=== PATIENT | male | born 1950 | race Caucasian/White ===

== ENCOUNTER 2020-03-07 21:27 | Inpatient (IN) | payer MEDICARE, BC ==
[~2020-03-07] VITALS: Ht 175.3 cm; Wt 77.8 kg
--- NOTE | 2020-03-07 21:45 | NUR ---
THIS IS A 69 YO M BIB EMS W/ C/O SI/SA. PT REPORTS THAT HE WAS HAVING TROUBLE WITH HIS AND JUST STARTED FEELING TONIGHT THAT TAKING HIS LIFE WOULD BE BEST. PT REPORTS DRINKING 1/5 ALCOHOL AND PLANNED ON SHOOTING HIMSELF IN THE MOUTH. EMS REPORTS HE WAS ON THE PHONE W/ HIS DAUGHTER WHO CALLED FOR AMBULANCE. PT DENIES ANY MH HX. PT STATES THIS IS THE FIRST TIME HE HAS EVER ATTEMPTED TO END HIS LIFE. PT IS COOPERATIVE AND PLEASANT. RESP EVEN AND UNLABORED. NADN. VS STABLE. PT CLOTHING REMOVED AND PLACED IN SAFETY LOCKER. PT IN GOWN. RESTING ON GURNEY. SITTER OUTSIDE OF ROOM. WILL CONTINUE TO MONITOR.
[2020-03-07 21:46] LABS: BASOPHILS # (AUTO) 0.05 x10^3/uL (0-0.1); BASOPHILS % (AUTO) 1 % (0-1); EOSINOPHILS # (AUTO) 0.06 x10^3/uL (0-0.4); EOSINOPHILS % (AUTO) 1 % (1-7); LYMPHOCYTES # (AUTO) 3.38 x10^3/uL (1-3.4); LYMPHOCYTES % (AUTO) 36 % (22-44); MD NO; MEAN CORPUSCULAR HEMOGLOBIN 31.1 pg (27.5-34.5); MEAN CORPUSCULAR HGB CONC 33.2 g/dL (33.2-36.2); MEAN CORPUSCULAR VOLUME 93.6 fL (81-97); MEAN PLATELET VOLUME 6.8 fL (7.4-10.4); MONOCYTES % (AUTO) 6 % (2-9); NEUTROPHILS # (AUTO) 5.44 x10^3/uL (1.8-6.8); NEUTROPHILS % (AUTO) 57 % (42-75); PLATELET COUNT 258 x10^3/uL (130-400); RED BLOOD COUNT 4.57 x10^6/uL (4.38-5.82); RED CELL DISTRIBUTION WIDTH 15.4 % (9.4-14.8)
[2020-03-07 21:56] LABS: ANION GAP 11 mmol/L (5-15); CALCIUM 8.6 mg/dL (8.5-10.1); CHLORIDE 108 mmol/L (98-107); CREATININE 3.16 mg/dL (0.7-1.3); SALICYLATE LEVEL 2.1 mg/dL (2.8-20.0)
[2020-03-07] MEDS ORDERED: RANI-460 PO (21:58)
[2020-03-07] MEDS ORDERED: NITR0.4T41 SL (21:58)
[2020-03-07] MEDS ORDERED: LATANOPROST (21:58)
[2020-03-07] MEDS ORDERED: ATOR20TA PO (21:58)
[2020-03-07] MEDS ORDERED: PANT20TA2 PO (21:58)
[2020-03-07] MEDS ORDERED: TAMS-11 PO (21:58)
[2020-03-07] MEDS ORDERED: CLOP75TA52 PO (21:58)
[2020-03-07] MEDS ORDERED: METO50TA82 PO (21:58)
[2020-03-07] MEDS ORDERED: ASPI-496 PO (21:58)
[2020-03-07] MEDS ORDERED: AMLO-150 PO (21:58)
[2020-03-07] MEDS ORDERED: TELM40TA PO (21:58)
--- NOTE | 2020-03-07 22:32 | NUR ---
PT PROVIDED URINAL FOR URINE SAMPLE. PT REPORTS HE CAN'T PROVIDE URINE AT THIS TIME.
--- NOTE | 2020-03-07 22:38 | NUR ---
FRANCESCA (PTS ) [phone]. SPOKE TO PATIENTS FRANCESCA WITH PATIENTS PERMISSION. REPORTS THAT HE HAS BEEN DRINKING HEAVILY FOR A FEW DAYS NOW. REPORTS PT HAS HX OF STAGE 4 CIRROHSIS OF LIVER. JOE MA WOULD LIKE TO BE GIVEN UPDATES.
[2020-03-07] MEDS ORDERED: SODIUM CHLORIDE 0.9% 1,000ML IVBOLUS ONE (23:00)
[2020-03-07 23:39] LABS: BILIRUBIN, DIRECT 0.3 mg/dL (0.1-0.2)
--- NOTE | 2020-03-07 23:40 | NUR ---
REPORT GIVEN TO ELSIE BOSWELL. PT IS READY FOR TRANSPORT.
[2020-03-07 23:41] LABS: BILIRUBIN,INDIRECT 0.4 mg/dL (0.0-2.0); BILIRUBIN,TOTAL 0.7 mg/dL (0.2-1.0); TOTAL PROTEIN 8.2 g/dL (6.4-8.2)
--- NOTE | 2020-03-07 23:50 | NUR ---
PT TRANSFERED UPSTAIRS. DR. PENALOZA PLACED PATIENT ON HOLD AT THIS TIME. WILL TUBE UP PAPERWORK.
[2020-03-08 00:03] VITALS: BP 126/78
[2020-03-08] MEDS ORDERED: POTASSIUM CHLORIDE 20 MEQ, MAGNESIUM SULFATE 2 GM, THIAMINE 200 MG, MVI ADULT 10 ML, FO... IV SCH (00:46)
[2020-03-08] MEDS: HEPARIN 5,000 UNITS/ML, 1ML SQ SCH ×3 (01:00→17:00)
[2020-03-08] MEDS ORDERED: ACETAMINOPHEN 325 MG TABLET PO PRN (01:00)
[2020-03-08] MEDS ORDERED: TRAZODONE 50MG TABLET PO PRN (01:00)
[2020-03-08] MEDS ORDERED: hydrALAzine 20 MG/ML, 1ML IVPush PRN (01:00)
[2020-03-08] MEDS ORDERED: ONDANSETRON 2MG/ML, 2ML IVPush PRN (01:00)
[2020-03-08] MEDS: TAMSULOSIN 0.4 MG CAP.ER.24H PO SCH ×2 (01:14→20:31)
[2020-03-08 05:17] LABS: CHLORIDE,URINE RANDOM 47 mmol/L; CULTURE INDICATED? YES; MICROSCOPIC INDICATED; POTASSIUM,URINE RANDOM 50 mmol/L; SODIUM,URINE RANDOM 40 mmol/L
[2020-03-08 05:31] LABS: AMPHETAMINE SCREEN, URINE Negative (Negative); BARBITURATE SCREEN, URINE Negative (Negative); BENZODIAZEPINE SCREEN, URINE Negative (Negative); CANNABINOID SCREEN, URINE Negative (Negative); COCAINE SCREEN, URINE Negative (Negative); METHADONE SCREEN, URINE Negative (Negative); OPIATE SCREEN, URINE Negative (Negative)
[2020-03-08 05:33] LABS: CHLORIDE 111 mmol/L (98-107)
[2020-03-08 05:38] LABS: ANION GAP 11 mmol/L (5-15); CALCIUM 8.1 mg/dL (8.5-10.1); CREATININE 2.47 mg/dL (0.7-1.3)
[2020-03-08] MEDS: PANTOPRAZOLE 20MG TABLET PO SCH (06:06)
[2020-03-08 07:06] VITALS: BP 119/73
[2020-03-08] MEDS: AMLODIPINE 5 MG TABLET PO SCH (08:59)
[2020-03-08] MEDS: ASPIRIN 81 MG TABLET EC PO SCH (08:59)
[2020-03-08] MEDS: FAMOTIDINE 10 MG TAB PO SCH (08:59)
[2020-03-08] MEDS: CLOPIDOGREL 75 MG TABLET PO SCH (08:59)
[2020-03-08] MEDS: METOPROLOL TARTRATE 25 MG TAB PO SCH (08:59)
[2020-03-08 13:38] VITALS: BP 129/63
[2020-03-08 19:53] VITALS: BP 145/79
[2020-03-08] MEDS: ATORVASTATIN 20 MG TABLET PO SCH (20:31)
[2020-03-09] MEDS: POTASSIUM CHLORIDE 20 MEQ, MAGNESIUM SULFATE 2 GM, THIAMINE 200 MG, MVI ADULT 10 ML, FO... IV SCH ×2 (00:32→09:26)
[2020-03-09] MEDS: HEPARIN 5,000 UNITS/ML, 1ML SQ SCH ×3 (00:33→17:00)
[2020-03-09 01:58] VITALS: BP 156/91
[2020-03-09 04:37] LABS: BASOPHILS # (AUTO) 0.01 x10^3/uL (0-0.1); BASOPHILS % (AUTO) 0 % (0-1); EOSINOPHILS % (AUTO) 2 % (1-7); LYMPHOCYTES % (AUTO) 27 % (22-44); MD NO; MEAN CORPUSCULAR HEMOGLOBIN 31.1 pg (27.5-34.5); MEAN CORPUSCULAR VOLUME 94.4 fL (81-97); MEAN PLATELET VOLUME 7.1 fL (7.4-10.4); MONOCYTES # (AUTO) 0.32 x10^3/uL (0.2-0.8); MONOCYTES % (AUTO) 6 % (2-9); NEUTROPHILS # (AUTO) 3.88 x10^3/uL (1.8-6.8); NEUTROPHILS % (AUTO) 66 % (42-75); PLATELET COUNT 159 x10^3/uL (130-400); RED BLOOD COUNT 3.98 x10^6/uL (4.38-5.82); RED CELL DISTRIBUTION WIDTH 15.1 % (9.4-14.8)
[2020-03-09 04:48] LABS: ANION GAP 5 mmol/L (5-15); CALCIUM 8.4 mg/dL (8.5-10.1); CHLORIDE 112 mmol/L (98-107); CREATININE 1.68 mg/dL (0.7-1.3)
[2020-03-09] MEDS: PANTOPRAZOLE 20MG TABLET PO SCH (05:51)
[2020-03-09 07:45] VITALS: BP 138/77
[2020-03-09] MEDS: CLOPIDOGREL 75 MG TABLET PO SCH (08:20)
[2020-03-09] MEDS: AMLODIPINE 5 MG TABLET PO SCH (08:20)
[2020-03-09] MEDS: ASPIRIN 81 MG TABLET EC PO SCH (08:20)
[2020-03-09] MEDS: FAMOTIDINE 10 MG TAB PO SCH (08:21)
[2020-03-09] MEDS: METOPROLOL TARTRATE 25 MG TAB PO SCH (08:21)
[2020-03-09 16:14] VITALS: BP 130/79
[2020-03-09] MEDS: ATORVASTATIN 20 MG TABLET PO SCH (20:16)
[2020-03-09] MEDS: TAMSULOSIN 0.4 MG CAP.ER.24H PO SCH (20:16)
[2020-03-09 20:21] VITALS: BP 128/82
[2020-03-10] MEDS: HEPARIN 5,000 UNITS/ML, 1ML SQ SCH ×3 (00:58→16:38)
[2020-03-10 02:02] VITALS: BP 136/86
[2020-03-10] MEDS: PANTOPRAZOLE 20MG TABLET PO SCH (05:46)
[2020-03-10 06:00] LABS: BASOPHILS # (AUTO) 0.02 x10^3/uL (0-0.1); BASOPHILS % (AUTO) 0 % (0-1); EOSINOPHILS # (AUTO) 0.22 x10^3/uL (0-0.4); EOSINOPHILS % (AUTO) 4 % (1-7); LYMPHOCYTES # (AUTO) 1.68 x10^3/uL (1-3.4); LYMPHOCYTES % (AUTO) 28 % (22-44); MD NO; MEAN CORPUSCULAR HEMOGLOBIN 31.5 pg (27.5-34.5); MEAN CORPUSCULAR HGB CONC 33.5 g/dL (33.2-36.2); MEAN CORPUSCULAR VOLUME 94.1 fL (81-97); MEAN PLATELET VOLUME 7.1 fL (7.4-10.4); MONOCYTES # (AUTO) 0.47 x10^3/uL (0.2-0.8); MONOCYTES % (AUTO) 8 % (2-9); NEUTROPHILS # (AUTO) 3.52 x10^3/uL (1.8-6.8); NEUTROPHILS % (AUTO) 60 % (42-75); PLATELET COUNT 142 x10^3/uL (130-400); RED BLOOD COUNT 3.98 x10^6/uL (4.38-5.82); RED CELL DISTRIBUTION WIDTH 15.1 % (9.4-14.8)
[2020-03-10 06:10] LABS: ANION GAP 4 mmol/L (5-15); CALCIUM 8.6 mg/dL (8.5-10.1); CHLORIDE 114 mmol/L (98-107)
[2020-03-10 07:32] VITALS: BP 153/83
[2020-03-10] MEDS: FAMOTIDINE 10 MG TAB PO SCH (08:05)
[2020-03-10] MEDS: METOPROLOL TARTRATE 25 MG TAB PO SCH (08:05)
[2020-03-10] MEDS: CLOPIDOGREL 75 MG TABLET PO SCH (08:05)
[2020-03-10] MEDS: ASPIRIN 81 MG TABLET EC PO SCH (08:05)
[2020-03-10] MEDS: AMLODIPINE 5 MG TABLET PO SCH (08:05)
[2020-03-10] MEDS: POTASSIUM CHLORIDE 20 MEQ, MAGNESIUM SULFATE 2 GM, THIAMINE 200 MG, MVI ADULT 10 ML, FO... IV SCH (08:21)
[2020-03-10 13:42] VITALS: BP 136/71
[2020-03-10 19:36] VITALS: BP 137/76
[2020-03-10] MEDS: ATORVASTATIN 20 MG TABLET PO SCH (19:58)
[2020-03-10] MEDS: TAMSULOSIN 0.4 MG CAP.ER.24H PO SCH (19:58)
[2020-03-11] MEDS: HEPARIN 5,000 UNITS/ML, 1ML SQ SCH ×3 (01:00→17:10)
[2020-03-11 02:22] VITALS: BP 131/70
[2020-03-11] MEDS: PANTOPRAZOLE 20MG TABLET PO SCH (05:52)
[2020-03-11 07:27] LABS: BASOPHILS # (AUTO) 0.02 x10^3/uL (0-0.1); BASOPHILS % (AUTO) 0 % (0-1); EOSINOPHILS # (AUTO) 0.27 x10^3/uL (0-0.4); EOSINOPHILS % (AUTO) 5 % (1-7); LYMPHOCYTES # (AUTO) 1.55 x10^3/uL (1-3.4); LYMPHOCYTES % (AUTO) 28 % (22-44); MD NO; MEAN CORPUSCULAR HEMOGLOBIN 31.3 pg (27.5-34.5); MEAN CORPUSCULAR VOLUME 94.7 fL (81-97); MEAN PLATELET VOLUME 6.8 fL (7.4-10.4); MONOCYTES # (AUTO) 0.43 x10^3/uL (0.2-0.8); MONOCYTES % (AUTO) 8 % (2-9); NEUTROPHILS # (AUTO) 3.33 x10^3/uL (1.8-6.8); NEUTROPHILS % (AUTO) 59 % (42-75); PLATELET COUNT 128 x10^3/uL (130-400); RED BLOOD COUNT 3.98 x10^6/uL (4.38-5.82); RED CELL DISTRIBUTION WIDTH 14.9 % (9.4-14.8)
[2020-03-11 07:35] LABS: ALANINE AMINOTRANSFERASE 18 U/L (12-78); ANION GAP 4 mmol/L (5-15); CALCIUM 8.5 mg/dL (8.5-10.1); CHLORIDE 115 mmol/L (98-107)
[2020-03-11 07:37] LABS: ALKALINE PHOSPHATASE 75 U/L (45-117); BILIRUBIN,TOTAL 0.9 mg/dL (0.2-1.0); TOTAL PROTEIN 6.5 g/dL (6.4-8.2)
[2020-03-11 07:57] VITALS: BP 140/81
[2020-03-11] MEDS: POTASSIUM CHLORIDE 20 MEQ, MAGNESIUM SULFATE 2 GM, THIAMINE 200 MG, MVI ADULT 10 ML, FO... IV SCH (09:35)
[2020-03-11] MEDS: ASPIRIN 81 MG TABLET EC PO SCH (09:35)
[2020-03-11] MEDS: FAMOTIDINE 10 MG TAB PO SCH (09:35)
[2020-03-11] MEDS: AMLODIPINE 5 MG TABLET PO SCH (09:35)
[2020-03-11] MEDS: CLOPIDOGREL 75 MG TABLET PO SCH (09:35)
[2020-03-11] MEDS: METOPROLOL TARTRATE 25 MG TAB PO SCH (09:35)
[2020-03-11 14:39] VITALS: BP 105/61
[2020-03-11 19:42] VITALS: BP 148/83
[2020-03-11] MEDS: TAMSULOSIN 0.4 MG CAP.ER.24H PO SCH (20:04)
[2020-03-11] MEDS: ATORVASTATIN 20 MG TABLET PO SCH (20:04)
[2020-03-12] MEDS: HEPARIN 5,000 UNITS/ML, 1ML SQ SCH ×2 (01:05→09:10)
[2020-03-12 01:32] VITALS: BP 154/82
[2020-03-12] MEDS: PANTOPRAZOLE 20MG TABLET PO SCH (06:06)
[2020-03-12 08:13] VITALS: BP 147/81
[2020-03-12] MEDS: ASPIRIN 81 MG TABLET EC PO SCH (09:18)
[2020-03-12] MEDS: FAMOTIDINE 10 MG TAB PO SCH (09:18)
[2020-03-12] MEDS: CLOPIDOGREL 75 MG TABLET PO SCH (09:18)
[2020-03-12] MEDS: POTASSIUM CHLORIDE 20 MEQ, MAGNESIUM SULFATE 2 GM, THIAMINE 200 MG, MVI ADULT 10 ML, FO... IV SCH (09:18)
[2020-03-12] MEDS: METOPROLOL TARTRATE 25 MG TAB PO SCH (09:19)
[2020-03-12] MEDS: AMLODIPINE 5 MG TABLET PO SCH (09:19)
[2020-03-12] MEDS ORDERED: THIA100T67 PO (15:09)
[2020-03-12] MEDS ORDERED: FOLI-17 PO (15:09)
[2020-03-12] MEDS ORDERED: MULT1TAB9 PO (15:09)
[2020-03-12 16:34] VITALS: BP 157/86
== END 2020-03-12 17:39 | disposition home or self-care (01) | DRG 896 ==
LOC: ED 23:13 → 3N 03-08 00:08
PROVIDERS: ADMIT Family Medicine; ATTEND Hospitalist
DX: F10.129 Alcohol abuse with intoxication, unspecified (principal); N17.0 Acute kidney failure with tubular necrosis; R45.851 Suicidal ideations; E87.2 Acidosis; E11.51 Type 2 diabetes mellitus with diabetic peripheral angiopathy without gangrene; E78.5 Hyperlipidemia, unspecified; F12.90 Cannabis use, unspecified, uncomplicated; I10 Essential (primary) hypertension; I25.10 Atherosclerotic heart disease of native coronary artery without angina pectoris; K21.9 Gastro-esophageal reflux disease without esophagitis; N40.0 Benign prostatic hyperplasia without lower urinary tract symptoms; Y90.8 Blood alcohol level of 240 mg/100 ml or more; Z86.718 Personal history of other venous thrombosis and embolism; I25.2 Old myocardial infarction; Z87.891 Personal history of nicotine dependence; Z95.5 Presence of coronary angioplasty implant and graft
CPT/HCPCS: 36415; 76770; 80048; 80053; 80076; 80307; 81001; 82040; 82436; 82570; 83735; 84100; 84133; 84300; 84443; 85025; 87086; 99285; G0378; J2405; J3411; J3475; J3480; J7042; J7030

== ENCOUNTER 2020-05-01 07:57 | Outpatient (CLI) | payer MEDICARE, BC ==
[~2020-05-01 07:57] MED LIST: AMLO-150 PO; ASPI-496 PO; ATOR20TA PO; CLOP75TA52 PO; FOLI-17 PO; LATANOPROST; METO50TA82 PO; MULT1TAB9 PO; NITR0.4T41 SL; PANT20TA2 PO; RANI-460 PO; TAMS-11 PO; TELM40TA PO; THIA100T67 PO
== END 2020-05-01 23:59 | disposition home or self-care (01) ==
LOC: CFH 07:57
PROVIDERS: ATTEND Internal Medicine Gastroenterology
DX: K80.20 Calculus of gallbladder without cholecystitis without obstruction (principal); N28.1 Cyst of kidney, acquired; K70.30 Alcoholic cirrhosis of liver without ascites; I10 Essential (primary) hypertension; I70.0 Atherosclerosis of aorta; Z86.19 Personal history of other infectious and parasitic diseases; K74.60 Unspecified cirrhosis of liver
CPT/HCPCS: 36415; 76700; 76706; 86704; 86706; 87340